=== PATIENT | male | born 1950 | race Caucasian/White ===

== ENCOUNTER 2022-04-09 11:07 | Inpatient (IN) | payer MEDICARE, OTHER ==
[~2022-04-09] VITALS: Ht 177.8 cm; Wt 66.2 kg
--- NOTE | 2022-04-09 11:27 | NUR ---
splint removed by emt as ordered
[2022-04-09] MEDS ORDERED: CEFAZOLIN 1 GM in IV D5W 50 ML IV ONE (11:30)
[2022-04-09] MEDS ORDERED: MORPHINE SULFATE INJ 2 MG/ML DISP.SYRIN IV ONE (11:30)
[2022-04-09] MEDS ORDERED: TDAP [DIPH/PERTUSSIS/TET] 0.5 ML VIAL IM ONE ×3 (11:30→12:14)
--- NOTE | 2022-04-09 11:33 | NUR ---
CALLED DR. VICTORIA LEFT VM
--- NOTE | 2022-04-09 11:43 | NUR ---
CALLED DR. JUNIOR [phone] ASKED HER TO CALL US BACK.
--- NOTE | 2022-04-09 11:45 | NUR ---
lainey paulino placed over patient.
[2022-04-09] MEDS ORDERED: MORPHINE SULFATE INJ 4 MG/ML DISP.SYRIN ONE (12:05)
[2022-04-09 12:08] LABS: BASOPHILS % (AUTO) 0.3 % (0.0-2.0); EOSINOPHILS % (AUTO) 0.1 % (0.0-6.0); HEMATOCRIT 47 % (39-51); HEMOGLOBIN 14.9 g/dL (13.5-17.5); LYMPHOCYTES % (AUTO) 9.9 % (20.0-44.0); MEAN CORPUSCULAR HGB CONC 32 g/dl (31.0-36.0); MEAN CORPUSCULAR VOLUME 111 fL (80-96); MONOCYTES # (AUTO) 1.4 K/uL (0.1-1.30); NEUTROPHILS # (AUTO) 7.3 K/uL (1.8-8.9); NEUTROPHILS % (AUTO) 75.7 % (43.0-81.0); PLATELET COUNT (AUTO) 448 K/uL (150-450); RED BLOOD CELL COUNT(AUTO) 4.21 MIL/uL (4.5-6.0); WHITE BLOOD COUNT (AUTO) 9.7 K/uL (4.3-11.0)
--- NOTE | 2022-04-09 12:11 | NUR ---
MOVE SHEET SUBMITTED.
--- NOTE | 2022-04-09 12:13 | NUR ---
CONTACTED DR. RICHTER.
[2022-04-09] MEDS ORDERED: METOPROLOL TARTRATE INJ 5 MG/5 ML AMPUL IV ONE (12:30)
[2022-04-09 13:15] LABS: CALCIUM, SERUM 9.4 mg/dL (8.5-10.1); CARBON DIOXIDE 30 mmol/L (21-32); CHLORIDE 105 mmol/L (98-107); CREATININE 1.4 mg/dL (0.6-1.3); GLUCOSE 140 mg/dL (74-106); POTASSIUM 3.3 mmol/L (3.5-5.1); SODIUM SERUM 142 mmol/L (136-145); UREA NITROGEN, BLOOD 30 mg/dL (7-18)
[2022-04-09 13:19] LABS: ALANINE AMINOTRANSFERASE 16 U/L (12-78); ALBUMIN 3.5 g/dL (3.4-5.0); ALKALINE PHOSPHATASE 77 U/L (46-116); ASPARTATE AMINOTRANSFERASE 13 U/L (15-37); BILIRUBIN,DIRECT 0.1 mg/dL (0.0-0.2); BILIRUBIN,TOTAL 0.4 mg/dL (0.2-1.0); TOTAL PROTEIN, SERUM 7.5 g/dL (6.4-8.2)
--- NOTE | 2022-04-09 13:24 | NUR ---
EPIC CALLED WILLOW MACHINE OPERATOR PAGED
[2022-04-09] MEDS ORDERED: ONDANSETRON HCL/PF 4 MG/2 ML VIAL IVP PRN (16:00)
[2022-04-09] MEDS ORDERED: HYDROCODONE/APAP 10/325MG TABLET PO PRN (16:00)
[2022-04-09] MEDS ORDERED: Z GUARD REMEDY 4 OZ OINT TP PRN (16:00)
[2022-04-09] MEDS ORDERED: CEFTRIAXONE 2 G in IV D5W 100 ML IV SCH (16:00)
--- NOTE | 2022-04-09 16:21 | NUR ---
GOT BED 113-1
--- NOTE | 2022-04-09 16:37 | NUR ---
report given to vlad GILES
[2022-04-09 16:47] LABS: C-REACTIVE PROTEIN 1.2 mg/dL (0.0-0.9)
--- NOTE | 2022-04-09 17:01 | NUR ---
moved to inpatient room safely per acls protocol
[2022-04-09 17:17] VITALS: BP 145/80
--- NOTE | 2022-04-09 17:32 | NUR ---
ICE CREAM VENDOR NOTE RECEIVED PATIENT FROM ER WITH DX HYPOTHERMIA AWAKE WITH SOME CONFUSION AND FORGETFULNESS, UNDER CARE DR LACEY GRAY, PLACED ON TELE MONITOR SR HR 87, ON RA NO SOB NOTED AT THIS TIME, SATURATION 100%, RT AC HL INTACT AND FLUSHED WELL , BED IN LOWEST AND LOCKED POSITION , VS TAKEN CALL LIGHT WITHIN REACH , ALL NEEDS ATTENDED, BODY CHECK DONE WILL CONT TO MONITOR CLOSELY SAFETY MEASURE PROVIDED
[2022-04-09] MEDS: IV 1/2NS 1000 ML 1,000 ML IV PRN (18:10)
--- NOTE | 2022-04-09 18:28 | NUR ---
GLASS LINED TANK REPAIRER NOTE IVF STARTED ORDERED
[2022-04-09] MEDS: VANCOMYCIN 1.25 GM in IV D5W 250 ML IV SCH (18:47)
--- NOTE | 2022-04-09 19:30 | NUR ---
SHERIFFS OFFICER NOTES RECEIVED PATIENT AWAKE IN BED WITH EPISODES OF CONFUSION. REORIENT THE PATIENT. ON TELE MONITOR READING SR HR 80 .ON RA TOLERATING WELL .NO SOB NOTED AT THIS TIME, SATURATION NOTED 99%. IV ACCESS NOTED RT AC G #20 INTACT AND FLUSHED WELL . TEMP NOTED 97.5. NO HYPOTHERMIA NOTED.ALL SAFETY MEASURES IN PLACE. BED IN LOWEST AND LOCKED POSITION . CALL LIGHT AND TABLE IN EASY REACH. WILL CONTINUE TO MONITOR CLOSELY.
--- NOTE | 2022-04-09 19:45 | NUR ---
RN NOTES PETRA CALLED FROM LAB REPORTED 3.9 LACTIC ACID. IT WAS LOWER THAN THE PREVIOUS WHICH WAS 4.7
[2022-04-09] MEDS: HEPARIN SODIUM, PORCINE 5000 UNITS/1 ML VIAL SQ SCH (20:41)
--- NOTE | 2022-04-10 00:31 | NUR ---
RN NOTES PATIENT'S BLOOD PRESSURE NOTED 170/90, P=84. INFORMEND TEST CASE DEVELOPER RAYMOND. NEW ORDER OF HYDRALAZINE 5MG IVP Q4 HOURS PRN GIVEN FOR HYPERTENSION. TO KEEP SBP LESS THAN 160.
--- NOTE | 2022-04-10 00:45 | NUR ---
RN NOTES BLOOD PRESSURE 171/90, P=84.PRN HYDRALAZINE IV PUSH 0.25 ML GIVEN AT 0047. BLOOD PRESSURE DROPS TO 147/74.
[2022-04-10] MEDS: hydrALAZINE HCL IV 20 MG VIAL IV PRN (00:47)
[2022-04-10 05:46] LABS: BASOPHILS % (AUTO) 0.2 % (0.0-2.0); EOSINOPHILS % (AUTO) 0.7 % (0.0-6.0); HEMATOCRIT 39 % (39-51); LYMPHOCYTES # (AUTO) 1.2 K/uL (0.8-4.8); LYMPHOCYTES % (AUTO) 18.6 % (20.0-44.0); MEAN CORPUSCULAR HGB CONC 33 g/dl (31.0-36.0); MEAN CORPUSCULAR VOLUME 108 fL (80-96); MONOCYTES % (AUTO) 16.2 % (2.0-12.0); NEUTROPHILS # (AUTO) 4.1 K/uL (1.8-8.9); NEUTROPHILS % (AUTO) 64.3 % (43.0-81.0); PLATELET COUNT (AUTO) 360 K/uL (150-450); RED BLOOD CELL COUNT(AUTO) 3.65 MIL/uL (4.5-6.0); WHITE BLOOD COUNT (AUTO) 6.4 K/uL (4.3-11.0)
[2022-04-10 06:12] LABS: CALCIUM, SERUM 8.3 mg/dL (8.5-10.1); CREATININE 0.9 mg/dL (0.6-1.3); MAGNESIUM 1.9 mg/dL (1.8-2.4); PHOSPHORUS 2.9 mg/dL (2.5-4.9); POTASSIUM 3.9 mmol/L (3.5-5.1)
--- NOTE | 2022-04-10 06:24 | NUR ---
CRIMPING PRESS OPERATOR CLOSING NOTES PATIENT AWAKE IN BED WITH EPISODES OF CONFUSION. REORIENT THE PATIENT. ON TELE MONITOR READING SR HR .ON RA TOLERATING WELL .NO SOB NOTED AT THIS TIME, SATURATION NOTED 98%. IV ACCESS NOTED RT AC G #20 INTACT AND FLUSHED WELL . TEMP NOTED 97.7 NO HYPOTHERMIA NOTED. DUE MEDS GIVEN ORDERED. ALL SAFETY MEASURES IN PLACE. BED IN LOWEST AND LOCKED POSITION . CALL LIGHT AND TABLE IN EASY REACH. WILL ENDORSE FOR VALERIA.
[2022-04-10 07:00] LABS: THYROID STIMULATING HORMONE 3.455 uIU/mL (0.358-3.74)
[2022-04-10 08:00] VITALS: BP 159/85
--- NOTE | 2022-04-10 08:01 | NUR ---
TELE OPENING RN NOTES RECEIVED PATIENT AWAKE IN BED WITH EPISODES OF CONFUSION. REORIENT THE PATIENT. ON TELE MONITOR READING SR HR 80 .ON RA TOLERATING WELL .NO SOB NOTED AT THIS TIME, TOLERATING WELL, NOT IN DISTRESS. IV ACCESS NOTED RT AC G #20 INTACT. SAFETY MEAURES IN PLACE. CALL LIGHT WITHIN REACH. PLAN OF CARE CONTINUE.
[2022-04-10] MEDS: PANTOPRAZOLE 40 MG TABLET.DR PO SCH (08:11)
[2022-04-10] MEDS: HEPARIN SODIUM, PORCINE 5000 UNITS/1 ML VIAL SQ SCH ×2 (08:15→20:51)
[2022-04-10] MEDS: IV 1/2NS 1000 ML 1,000 ML IV PRN (10:44)
[2022-04-10 12:00] VITALS: BP 142/90
[2022-04-10 16:00] VITALS: BP 123/72
[2022-04-10 16:11] LABS: LYMPHOCYTES % (MANUAL) 21 % (16-48); MONOCYTES % (MANUAL) 14 % (0-11.0); NEUTROPHILS % (MANUAL) 65 (42-76)
[2022-04-10] MEDS: VANCOMYCIN 1.25 GM in IV D5W 250 ML IV SCH (17:30)
--- NOTE | 2022-04-10 17:41 | NUR ---
URINE COLLECTED AND CALLED LAB TO PICK IT UP.
--- NOTE | 2022-04-10 18:28 | NUR ---
TELE CLOSING RN NOTES PATIENT AWAKE ALERT AND VERBALLY RESPONSIVE, WITH EPISODES OF CONFUSION. REORIENT THE PATIENT. ON TELE MONITOR READING SR HR 93. ON RA TOLERATING WELL .NO SOB NOTED AT THIS TIME, TOLERATING WELL, NOT IN DISTRESS. IV ACCESS NOTED RT AC PIV PATENT AND INTACT, WITH 1/2 NS RUNNING AT 75ML/HR AND ANTIBIOTICS. SAFETY MEAURES IN PLACE. CALL LIGHT WITHIN REACH.WILL ENDORSE TO NIGHT NURSE FOR VALERIA.
--- NOTE | 2022-04-10 19:30 | NUR ---
CUSTOMER SERVICE ASSISTANT OPENING NOTE RECEIVED PATIENT IN BED; AWAKE, ALERT AND ORIENTED X 2 WITH PERIODS OF CONFUSION. ON ROOM AIR; TOLERATING WELL. BREATHING EVEN AND NONLABORED. NOT IN ANY FORM OF RESPIRATORY DISTRESS. DENIES ANY PAIN OR DISCOMFORT AT THIS TIME. ON TELE MONITORING WITH READING OF SINUS RHYTHM HR-91 BPM. WITH IV ACCESS ON RIGHT ANTECUBITAL 20G; PATENT AND INTACT INFUSING WITH 1/2 NS 1L RUNNING @ 75 ML/HR; FLUSHES WELL. ABLE TO MAKE NEEDS KNOWN. SAFETY PRECAUTIONS IMPLEMENTED: CALL LIGHT AND TABLE WITHIN REACH, SIDE RAILS UP X 3, BED IN LOWEST LOCKED POSITION. WILL CONTINUE TO MONITOR.
[2022-04-10 19:49] LABS: BILIRUBIN,URINE NEGATIVE (NEGATIVE); COLOR,URINE YELLOW (YELLOW); LEUKOCYTE ESTERASE ,URINE NEGATIVE (NEGATIVE); NITRITE, URINE NEGATIVE (NEGATIVE); PROTEIN,URINE NEGATIVE (NEGATIVE); UGLUCOSE NEGATIVE (NEGATIVE); UROBILINOGEN,URINE 0.2 EU/dL (0.2)
[2022-04-10 20:00] VITALS: BP 141/80
[2022-04-10] MEDS: ACETAMINOPHEN 325 MG TABLET PO PRN (20:37)
--- NOTE | 2022-04-10 20:37 | NUR ---
RN NOTE PATIENT COMPLAINED OF HEADACHE. PRN TYLENOL 650 MG GIVEN PO ORDERED. PATIENT KEPT COMFORTABLE IN BED. WILL CONTINUE TO MONITOR.
[2022-04-11] VITALS: BP 122/71
[2022-04-11 04:00] VITALS: BP 122/68
[2022-04-11] MEDS: IV 1/2NS 1000 ML 1,000 ML IV PRN ×2 (04:08→21:42)
[2022-04-11] MEDS: ACETAMINOPHEN 325 MG TABLET PO PRN (04:49)
--- NOTE | 2022-04-11 04:49 | NUR ---
RN NOTE PATIENT COMPLAINED OF HEADACHE. PRN TYLENOL 650 MG GIVEN PO ORDERED. PATIENT KEPT DRY AND COMFORTABLE IN BED. WILL CONTINUE TO MONITOR.
[2022-04-11 06:01] LABS: BASOPHILS % (AUTO) 0.4 % (0.0-2.0); HEMATOCRIT 38 % (39-51); HEMOGLOBIN 12.5 g/dL (13.5-17.5); LYMPHOCYTES # (AUTO) 1.3 K/uL (0.8-4.8); LYMPHOCYTES % (AUTO) 21.8 % (20.0-44.0); MEAN CORPUSCULAR HGB CONC 33 g/dl (31.0-36.0); MEAN CORPUSCULAR VOLUME 108 fL (80-96); MONOCYTES # (AUTO) 0.8 K/uL (0.1-1.30); MONOCYTES % (AUTO) 13.8 % (2.0-12.0); NEUTROPHILS # (AUTO) 3.6 K/uL (1.8-8.9); PLATELET COUNT (AUTO) 295 K/uL (150-450); RED BLOOD CELL COUNT(AUTO) 3.51 MIL/uL (4.5-6.0); WHITE BLOOD COUNT (AUTO) 5.7 K/uL (4.3-11.0)
[2022-04-11 06:14] LABS: CALCIUM, SERUM 8.5 mg/dL (8.5-10.1); CREATININE 0.9 mg/dL (0.6-1.3); MAGNESIUM 1.9 mg/dL (1.8-2.4); PHOSPHORUS 3.2 mg/dL (2.5-4.9); POTASSIUM 3.5 mmol/L (3.5-5.1)
--- NOTE | 2022-04-11 06:45 | NUR ---
ANGLESMITH HELPER CLOSING NOTE PATIENT IN BED; AWAKE, A/O X 2 WITH PERIODS OF CONFUSION. STABLE ON ROOM AIR. BREATHING EQUAL AND UNLABORED. IN NO ACUTE DISTRESS. NO C/O ANY PAIN OR DISCOMFORT AT THIS TIME. ON TELE MONITORING WITH READING OF SINUS RHYTHM HR-73 BPM. WITH IV ACCESS ON RIGHT HAND 20G; INTACT AND PATENT INFUSING WITH 1/2 NS 1L RUNNING @ 75 ML/HR; FLUSHES WELL. WITH DRESSING ON LEFT HAND; C/D/I. SAFETY PRECAUTIONS MAINTAINED: CALL LIGHT AND TABLE WITHIN REACH, SIDE RAILS UP X 3, BED IN LOWEST LOCKED POSITION. ENDORSED TO INCOMING NURSE FOR VALERIA.
--- NOTE | 2022-04-11 07:40 | NUR ---
CADET DECK OPENING NOTE PATIENT IN BED; AWAKE, A/O X 2 WITH PERIODS OF CONFUSION. STABLE ON ROOM AIR. BREATHING EQUAL AND UNLABORED. IN NO ACUTE DISTRESS. NO C/O ANY PAIN OR DISCOMFORT AT THIS TIME. ON TELE MONITORING WITH READING OF SINUS RHYTHM HR-75 BPM. WITH IV ACCESS ON RIGHT HAND 20G; INTACT AND PATENT INFUSING WITH 1/2 NS 1L RUNNING @ 75 ML/HR; FLUSHES WELL. WITH DRESSING ON LEFT HAND; C/D/I. SAFETY PRECAUTIONS MAINTAINED: CALL LIGHT AND TABLE WITHIN REACH, SIDE RAILS UP X 3, BED IN LOWEST LOCKED POSITION. WILL CONTINUE TO MONITOR.
[2022-04-11 08:00] VITALS: BP 156/89
[2022-04-11] MEDS: PANTOPRAZOLE 40 MG TABLET.DR PO SCH (08:33)
[2022-04-11] MEDS: HEPARIN SODIUM, PORCINE 5000 UNITS/1 ML VIAL SQ SCH ×2 (08:41→21:44)
[2022-04-11 12:00] VITALS: BP 127/65
[2022-04-11 16:00] VITALS: BP 112/67
[2022-04-11] MEDS: VANCOMYCIN 1.25 GM in IV D5W 250 ML IV SCH (18:22)
--- NOTE | 2022-04-11 19:15 | NUR ---
NURSE GENERAL DUTY OPEN NOTE: ALERT AND ORIENTED TO TIME. REORIENTED TO TIME. EVEN AND UNLABORED BREATHING AT ROOM AIR. SKIN IS WARM AND DRY. SINUS RHYTHM 72 WITH ELEVATED T WAVE TELE MONITOR. IV ABX AND IVF OF 1/2 NS 75 ML/HR. IV SITE WITH NO S/S OF COMPLICATIONS. HOB ELEVATED AT SEMI-FOWLERS POSITION. BILATERAL HALF SIDE RAILS UP X2. BED IN LOW POSITION, LOCKED, EXIT ALARM ON. CALL LIGHT IN REACH. DENIES PAIN OR DISCOMFORT. VOIDED IN URINAL YELLOW URINE.
--- NOTE | 2022-04-11 19:41 | NUR ---
MARKET NEWS REPORTER CLOSING NOTE PATIENT IN BED; AWAKE, A/O X 2 WITH PERIODS OF CONFUSION. STABLE ON ROOM AIR. BREATHING EQUAL AND UNLABORED. IN NO ACUTE DISTRESS. NO C/O ANY PAIN OR DISCOMFORT AT THIS TIME. ON TELE MONITORING WITH READING OF SINUS RHYTHM HR-72 BPM. WITH IV ACCESS ON RIGHT HAND 20G; INTACT AND PATENT INFUSING WITH 1/2 NS 1L RUNNING @ 75 ML/HR; FLUSHES WELL. WITH DRESSING ON LEFT HAND; C/D/I. ALL DUE MEDS GIVEN. KEPT COMFORTABLE. SAFETY PRECAUTIONS MAINTAINED: CALL LIGHT AND TABLE WITHIN REACH, SIDE RAILS UP X 3, BED IN LOWEST LOCKED POSITION. ENDORSED TO INCOMING NURSE FOR VALERIA.
[2022-04-11 20:00] VITALS: BP 137/79
[2022-04-12] VITALS: BP 151/89
[2022-04-12] MEDS: ACETAMINOPHEN 325 MG TABLET PO PRN ×2 (00:38→18:11)
[2022-04-12 04:00] VITALS: BP 135/88
--- NOTE | 2022-04-12 06:30 | NUR ---
SUPERVISOR CELL EFFICIENCY CLOSING NOTE: ALERT AND ORIENTED TO TIME. REORIENTED TO TIME. EVEN AND UNLABORED BREATHING AT ROOM AIR. SKIN IS WARM AND DRY. SINUS RHYTHM 72 WITH ELEVATED T WAVE TELE MONITOR. IV ABX AND IVF OF 1/2 NS 75 ML/HR. IV SITE WITH NO S/S OF COMPLICATIONS. HOB ELEVATED AT SEMI-FOWLERS POSITION. USES URINAN WITH YELLOW URINE. ABLE TO SLEEP WELL. BILATERAL HALF SIDE RAILS UP X2. BED IN LOW POSITION, LOCKED, EXIT ALARM ON. CALL LIGHT IN REACH. DENIES PAIN OR DISCOMFORT. VOIDED IN URINAL YELLOW URINE.
--- NOTE | 2022-04-12 07:10 | NUR ---
AM MED SURG OPENING NOTES: RECEIVED PATIENT IN BED, AWAKE, ALERT, ORIENTED X 2. NO SOB NOTED AT THIS TIME, BREATHING EVEN AND UNLABORED.ROOM AIR 95-97% O2 SAT. PATIENT HAS IV RT HAND 24G.PATIENT DENIES ANY PAIN. BED LOCKED AND IN LOWEST POSITION WITH BED ALARM ON. ALL SAFETY MEASURES IN PLACE. CALL LIGHT WITHIN REACH. WILL CONTINUE TO MONITOR PATIENT THROUGHOUT SHIFT.
[2022-04-12 07:28] LABS: BASOPHILS % (AUTO) 0.6 % (0.0-2.0); HEMATOCRIT 38 % (39-51); HEMOGLOBIN 12.4 g/dL (13.5-17.5); LYMPHOCYTES # (AUTO) 1.1 K/uL (0.8-4.8); LYMPHOCYTES % (AUTO) 17.9 % (20.0-44.0); MEAN CORPUSCULAR HGB CONC 33 g/dl (31.0-36.0); MEAN CORPUSCULAR VOLUME 109 fL (80-96); MONOCYTES # (AUTO) 0.6 K/uL (0.1-1.30); MONOCYTES % (AUTO) 10.8 % (2.0-12.0); NEUTROPHILS # (AUTO) 4.1 K/uL (1.8-8.9); NEUTROPHILS % (AUTO) 68.7 % (43.0-81.0); PLATELET COUNT (AUTO) 285 K/uL (150-450); RED BLOOD CELL COUNT(AUTO) 3.47 MIL/uL (4.5-6.0)
[2022-04-12 08:00] VITALS: BP 149/86
[2022-04-12] MEDS: PANTOPRAZOLE 40 MG TABLET.DR PO SCH (08:04)
[2022-04-12 08:07] LABS: CALCIUM, SERUM 8.4 mg/dL (8.5-10.1); CARBON DIOXIDE 24 mmol/L (21-32); CHLORIDE 105 mmol/L (98-107); CREATININE 0.8 mg/dL (0.6-1.3); GLUCOSE 95 mg/dL (74-106); MAGNESIUM 1.9 mg/dL (1.8-2.4); PHOSPHORUS 3.5 mg/dL (2.5-4.9); POTASSIUM 3.3 mmol/L (3.5-5.1); SODIUM SERUM 138 mmol/L (136-145); UREA NITROGEN, BLOOD 7 mg/dL (7-18)
[2022-04-12] MEDS: HEPARIN SODIUM, PORCINE 5000 UNITS/1 ML VIAL SQ SCH ×2 (08:09→22:26)
[2022-04-12] MEDS: hydrALAZINE HCL IV 20 MG VIAL IV PRN (08:09)
[2022-04-12] MEDS ORDERED: POTASSIUM CHLORIDE 20 MEQ TAB.PRT.SR PO ONE (11:00)
[2022-04-12 12:00] VITALS: BP 161/91
[2022-04-12] MEDS: IV 1/2NS 1000 ML 1,000 ML IV PRN (13:51)
[2022-04-12 16:00] VITALS: BP 128/73
[2022-04-12] MEDS: LISINOPRIL (5MG) 5 MG TABLET PO SCH (16:22)
--- NOTE | 2022-04-12 18:15 | NUR ---
STEEL ERECTOR APPRENTICE NOTE PT COMPLAINED OF HEADACHE TYLENOL ADMINISTERE PRN
[2022-04-12] MEDS: VANCOMYCIN 1.25 GM in IV D5W 250 ML IV SCH (18:26)
--- NOTE | 2022-04-12 18:36 | NUR ---
CONTROL CLERK SUBASSEMBLY CLOSING NOTE PATIENT IN BED; AWAKE, A/O X 4 STABLE ON ROOM AIR. BREATHING EQUAL AND UNLABORED. IN NO ACUTE DISTRESS. NO C/O ANY PAIN OR DISCOMFORT AT THIS TIME. WITH IV ACCESS ON RIGHT HAND 20G; INTACT AND PATENT INFUSING WITH 1/2 NS 1000L RUNNING @ 75 ML/HR; FLUSHES WELL. WITH DRESSING ON LEFT HAND; SAFETY PRECAUTIONS MAINTAINED: CALL LIGHT AND TABLE WITHIN REACH, SIDE RAILS UP X 2, BED IN LOWEST LOCKED POSITION. WILL ENDORSE TO GUN STOCKER NURSE
[2022-04-12 20:00] VITALS: BP 148/80
--- NOTE | 2022-04-12 20:00 | NUR ---
MS RN OPENING NOTES: RECEIVED PATIENT AWAKE IN BED, BED IN LOW POSITION CALL LIGHTS WITHIN REACH, NO COMPLAIN OF PAIN AND DISCOMFORT AT THIS TIME, ON ROOM AIR SATURATING WELL, PATIENT IS A/OX3 ABLE TO MAKE NEEDS KNWON, ON BED REST REMIND TO USE CALL LIGHTS WHEN NEEDED ASSISTANCE, IV LINE AT RIGHT HAND #24 WITH ONGOING 1/2 NSS@75ML/HR INFUSING WELL, PATIENT KEPT CLEAN AND DRY ALL NEEDS MET WILL CONTINUE TO MONITOR;
[2022-04-13] VITALS: BP 153/82
[2022-04-13 04:00] VITALS: BP 169/92
[2022-04-13] MEDS: hydrALAZINE HCL IV 20 MG VIAL IV PRN (05:18)
[2022-04-13] MEDS: ACETAMINOPHEN 325 MG TABLET PO PRN (05:18)
[2022-04-13] MEDS ORDERED: VANCOMYCIN 1.25 GM in IV D5W 250 ML IV SCH (06:00)
--- NOTE | 2022-04-13 06:10 | NUR ---
RN NOTES: PATIENT REFUSED TO BE CLEAN PER INSURANCE JOB TITLES WENT THERE TRY TO CONVINCED PATIENT TO HAVE [employer] CLEAN, EXPLAIN BENEFITS BUT PATIENT KEPT ON REFUSING, WILL CONTINUE TO MONITOR
--- NOTE | 2022-04-13 06:19 | NUR ---
FIELD SERVICER CLOSING NOTES: PATIENT AWAKE IN BED, CASSANDRA IN LOW POSITION, CALL LIGHTS WITHIN REACH, NO COMPLAIN OF PAIN AND DISCOMFORT AT THIS TIME, ON ROOM AIR SATURATING WELL, PATIENT IS A/O X4 ABLE TO MAKE NEEDS KNOWN, PATIENT KEPT CLEAN AND DRY ALL NEEDS MET ENDORSE TO INCOMING SHIFT.
[2022-04-13 07:26] LABS: BASOPHILS % (AUTO) 0.2 % (0.0-2.0); EOSINOPHILS % (AUTO) 2.5 % (0.0-6.0); HEMATOCRIT 40 % (39-51); HEMOGLOBIN 13.1 g/dL (13.5-17.5); LYMPHOCYTES # (AUTO) 1.6 K/uL (0.8-4.8); LYMPHOCYTES % (AUTO) 17.4 % (20.0-44.0); MEAN CORPUSCULAR HGB CONC 33 g/dl (31.0-36.0); MEAN CORPUSCULAR VOLUME 109 fL (80-96); MONOCYTES # (AUTO) 1.1 K/uL (0.1-1.30); MONOCYTES % (AUTO) 11.9 % (2.0-12.0); NEUTROPHILS # (AUTO) 6.4 K/uL (1.8-8.9); PLATELET COUNT (AUTO) 314 K/uL (150-450); RED BLOOD CELL COUNT(AUTO) 3.65 MIL/uL (4.5-6.0); WHITE BLOOD COUNT (AUTO) 9.3 K/uL (4.3-11.0)
--- NOTE | 2022-04-13 07:32 | NUR ---
PATIENT AWAKE IN BED, CASSANDRA IN LOW POSITION, CALL LIGHTS WITHIN REACH, NO COMPLAIN OF PAIN AND DISCOMFORT AT THIS TIME, ON ROOM AIR SATURATING WELL, PATIENT IS A/O X4 ABLE TO MAKE NEEDS KNOWN, PATIENT KEPT CLEAN AND DRY ALL NEEDS MET ENDORSE TO INCOMING SHIFT. CALL LIGHT WITHIN REACH.
[2022-04-13 07:42] LABS: CALCIUM, SERUM 8.4 mg/dL (8.5-10.1); CARBON DIOXIDE 26 mmol/L (21-32); CHLORIDE 103 mmol/L (98-107); CREATININE 0.8 mg/dL (0.6-1.3); GLUCOSE 109 mg/dL (74-106); PHOSPHORUS 3.3 mg/dL (2.5-4.9); POTASSIUM 3.4 mmol/L (3.5-5.1); SODIUM SERUM 137 mmol/L (136-145); UREA NITROGEN, BLOOD 8 mg/dL (7-18)
[2022-04-13 08:00] VITALS: BP 165/89
[2022-04-13] MEDS: PANTOPRAZOLE 40 MG TABLET.DR PO SCH (08:01)
[2022-04-13] MEDS: LISINOPRIL (5MG) 5 MG TABLET PO SCH (08:02)
[2022-04-13] MEDS: HEPARIN SODIUM, PORCINE 5000 UNITS/1 ML VIAL SQ SCH (08:03)
[2022-04-13] MEDS ORDERED: POTASSIUM CHLORIDE 20 MEQ TAB.PRT.SR PO SCH (09:00)
[2022-04-13 12:00] VITALS: BP 165/89
--- NOTE | 2022-04-13 14:16 | NUR ---
COVID TEST DONE
--- NOTE | 2022-04-13 14:52 | NUR ---
REPORT GIVEN TO OJ GILES FOREST AIDE AT [facility].
--- NOTE | 2022-04-13 16:10 | NUR ---
PATIENT IS LEAVING BY [facility] AND BEING DISCHARGED TO [facility]. PATIENT IS IN STABLE CONDITION.
[2022-04-13] MEDS ORDERED: VANCOMYCIN 1.25 GM in IV NS 0.9% 250 ML IV SCH (18:00)
== END 2022-04-13 16:20 | DRG 871 ==
LOC: ER 11:09 → TELE1 16:45 → TELE-TD 04-11 20:37 → MEDSG1 04-12 15:50
PROVIDERS: ADMIT Nurse Practitioner Family
DX: A41.9 Sepsis, unspecified organism (principal); N17.0 Acute kidney failure with tubular necrosis; S52.615A Nondisplaced fracture of left ulna styloid process, initial encounter for closed fracture; S52.515A Nondisplaced fracture of left radial styloid process, initial encounter for closed fracture; L03.114 Cellulitis of left upper limb; T68.XXXA Hypothermia, initial encounter; R65.20 Severe sepsis without septic shock; E87.6 Hypokalemia; F15.10 Other stimulant abuse, uncomplicated; I10 Essential (primary) hypertension; R73.9 Hyperglycemia, unspecified; W19.XXXA Unspecified fall, initial encounter; Y93.9 Activity, unspecified; S60.522A Blister (nonthermal) of left hand, initial encounter; Y92.89 Other specified places as the place of occurrence of the external cause
CPT/HCPCS: 36415; 71045-TC; 73110; 73130-TC; 80048-TC; 80061-TC; 80076-TC; 80202-TC; 82550-TC; 83605-TC; 83735-TC; 84100-TC; 84443-TC; 84484-TC; 85025-TC; 85652-TC; 85730-TC; 86140-TC; 86803; 87040-TC; 87081-TC; 87806; 90715; C9803; G0378; J0360; J0690; J0696; J1644; J2270; J3370; J3490; J7030; J7050; J7060

== ENCOUNTER 2024-01-31 12:38 | Inpatient (IN) | payer MEDICARE, OTHER ==
[~2024-01-31] VITALS: Ht 170.2 cm; Wt 74.8 kg
[2024-01-31 13:33] LABS: BASOPHILS % (AUTO) 0.3 % (0.0-2.0); EOSINOPHILS # (AUTO) 0.3 K/uL (0.0-0.7); EOSINOPHILS % (AUTO) 3.5 % (0.0-6.0); HEMATOCRIT 37 % (39-51); HEMOGLOBIN 12.4 g/dL (13.5-17.5); LYMPHOCYTES # (AUTO) 0.9 K/uL (0.8-4.8); LYMPHOCYTES % (AUTO) 10.2 % (20.0-44.0); MEAN CORPUSCULAR HEMOGLOBIN 33 PG (26.0-33.0); MEAN CORPUSCULAR HGB CONC 34 g/dl (31.0-36.0); MEAN CORPUSCULAR VOLUME 99 fL (80-96); MONOCYTES # (AUTO) 0.9 K/uL (0.1-1.30); MONOCYTES % (AUTO) 10.2 % (2.0-12.0); NEUTROPHILS # (AUTO) 6.8 K/uL (1.8-8.9); NEUTROPHILS % (AUTO) 75.8 % (43.0-81.0); PLATELET COUNT (AUTO) 236 K/uL (150-450); RED BLOOD CELL COUNT(AUTO) 3.71 MIL/uL (4.5-6.0); RED CELL DISTRIBUTION WIDTH 13.6 % (11.5-15.0); WHITE BLOOD COUNT (AUTO) 8.9 K/uL (4.3-11.0)
[2024-01-31 13:46] LABS: ALANINE AMINOTRANSFERASE 16 U/L (12-78); ALBUMIN 3.1 g/dL (3.4-5.0); ALKALINE PHOSPHATASE 122 U/L (46-116); ASPARTATE AMINOTRANSFERASE 11 U/L (15-37); BILIRUBIN,DIRECT 0.1 mg/dL (0.0-0.2); BILIRUBIN,TOTAL 0.5 mg/dL (0.2-1.0); CALCIUM, SERUM 8.6 mg/dL (8.5-10.1); CARBON DIOXIDE 26 mmol/L (21-32); CHLORIDE 107 mmol/L (98-107); CREATININE 1.2 mg/dL (0.6-1.3); GLUCOSE 96 mg/dL (74-106); POTASSIUM 4.3 mmol/L (3.5-5.1); SODIUM SERUM 143 mmol/L (136-145); TOTAL PROTEIN, SERUM 7.1 g/dL (6.4-8.2); UREA NITROGEN, BLOOD 25 mg/dL (7-18)
[2024-01-31 14:54] LABS: NT-PRO BNP 131 pg/mL (0-125)
[2024-01-31] MEDS: CEFEPIME 1 GM in IV D5W 50 ML IV ONE (14:55)
[2024-01-31] MEDS: VANCOMYCIN 1 GM in IV D5W 250 ML IV ONE (15:07)
[2024-01-31 15:20] LABS: INR 1.01 (0.91-1.10); PARTIAL THROMBOPLASTIN TIME 28.7 SEC (24.3-34.3); PROTHROMBIN TIME 10.7 SECS (9.2-11.1)
[2024-01-31] MEDS ORDERED: ARIP5TAB10 PO (15:31)
[2024-01-31] MEDS ORDERED: ACET325T53 PO (15:31)
[2024-01-31] MEDS ORDERED: POLY17PO4 PO (15:31)
[2024-01-31] MEDS ORDERED: FURO20TA4 PO (15:31)
[2024-01-31] MEDS ORDERED: DICL75TA5 PO (15:31)
[2024-01-31] MEDS ORDERED: ASCO100058 PO (15:31)
[2024-01-31] MEDS ORDERED: CHOL500062 PO (15:31)
[2024-01-31] MEDS ORDERED: GABA300C PO (15:31)
[2024-01-31] MEDS ORDERED: SERT50TA PO (15:31)
[2024-01-31] MEDS ORDERED: MULT-16 PO (15:31)
[2024-01-31] MEDS ORDERED: MAGN400T52 PO (15:31)
[2024-01-31] MEDS ORDERED: HYDR-4076 PO (15:31)
[2024-01-31 15:44] LABS: BILIRUBIN,DIRECT 0.1 mg/dL (0.0-0.2); BILIRUBIN,TOTAL 0.4 mg/dL (0.2-1.0)
[2024-01-31] MEDS ORDERED: ONDANSETRON HCL/PF 4 MG/2 ML VIAL IVP PRN (16:00)
[2024-01-31] MEDS ORDERED: MAGNESIUM HYDROXIDE 30 ML UDC PO PRN (16:00)
[2024-01-31] MEDS ORDERED: ACETAMINOPHEN 325 MG TABLET PO PRN (16:00)
[2024-01-31] MEDS ORDERED: HYDROCODONE/APAP 10/325MG TABLET PO PRN (16:00)
[2024-01-31] MEDS ORDERED: MAG HYDROX/AL HYDROX/SIMETH 30 ML UDC PO PRN (16:00)
[2024-01-31] MEDS ORDERED: Z GUARD REMEDY 4 OZ OINT TP PRN (16:00)
[2024-01-31 16:40] VITALS: BP 153/90; TEMP 97.3; O2SAT 98
[2024-01-31] MEDS: IV NS 0.9% 250 ML IV PRN (16:56)
[2024-01-31] MEDS: ENOXAPARIN SODIUM 40 MG/0.4 ML DISP.SYRIN SQ SCH (17:00)
[2024-01-31] MEDS ORDERED: MAGNESIUM OXIDE 400 MG TABLET PO SCH (17:00)
[2024-01-31] MEDS: FUROSEMIDE 40 MG/4 ML VIAL IV SCH (17:07)
[2024-01-31] MEDS: GABAPENTIN 300 MG CAPSULE PO SCH (17:07)
[2024-01-31] MEDS: hydrALAZINE HCL 25 MG TABLET PO SCH (17:09)
[2024-01-31] MEDS: VANCOMYCIN 750 MG in IV D5W 250 ML IV ONE (18:02)
[2024-01-31] MEDS: DICLOFENAC SODIUM 25 MG TABLET.DR PO SCH (19:25)
[2024-02-01] MEDS: VANCOMYCIN 750 MG in IV D5W 250 ML IV SCH (05:09)
[2024-02-01 06:27] LABS: BASOPHILS % (AUTO) 0.3 % (0.0-2.0); EOSINOPHILS # (AUTO) 0.3 K/uL (0.0-0.7); EOSINOPHILS % (AUTO) 5.4 % (0.0-6.0); HEMATOCRIT 41 % (39-51); HEMOGLOBIN 13.1 g/dL (13.5-17.5); LYMPHOCYTES % (AUTO) 15.6 % (20.0-44.0); MEAN CORPUSCULAR HEMOGLOBIN 32 PG (26.0-33.0); MEAN CORPUSCULAR HGB CONC 32 g/dl (31.0-36.0); MEAN CORPUSCULAR VOLUME 100 fL (80-96); MONOCYTES # (AUTO) 0.8 K/uL (0.1-1.30); MONOCYTES % (AUTO) 13.4 % (2.0-12.0); NEUTROPHILS # (AUTO) 4.1 K/uL (1.8-8.9); NEUTROPHILS % (AUTO) 65.3 % (43.0-81.0); PLATELET COUNT (AUTO) 210 K/uL (150-450); RED BLOOD CELL COUNT(AUTO) 4.05 MIL/uL (4.5-6.0); RED CELL DISTRIBUTION WIDTH 13.4 % (11.5-15.0); WHITE BLOOD COUNT (AUTO) 6.2 K/uL (4.3-11.0)
[2024-02-01 06:41] LABS: CALCIUM, SERUM 8.8 mg/dL (8.5-10.1); CARBON DIOXIDE 24 mmol/L (21-32); CHLORIDE 104 mmol/L (98-107); CREATININE 1.1 mg/dL (0.6-1.3); GLUCOSE 87 mg/dL (74-106); MAGNESIUM 2.4 mg/dL (1.8-2.4); PHOSPHORUS 4.4 mg/dL (2.5-4.9); POTASSIUM 4.3 mmol/L (3.5-5.1); SODIUM SERUM 139 mmol/L (136-145); UREA NITROGEN, BLOOD 26 mg/dL (7-18)
[2024-02-01] MEDS: ARIPIPRAZOLE 5 MG TABLET PO SCH (08:11)
[2024-02-01] MEDS: SERTRALINE HCL 50 MG TABLET PO SCH (08:12)
[2024-02-01] MEDS: POLYETHYLENE GLYCOL 3350 17 GM POWD.PACK PO SCH (08:12)
[2024-02-01 08:15] VITALS: BP 155/73; TEMP 97.7; O2SAT 96
[2024-02-01 09:45] VITALS: BP 138/71
[2024-02-01 11:54] VITALS: BP_SYST 133; BP_SYST 138; BP_DIAS 71; BP_DIAS 84
[2024-02-01 16:00] VITALS: BP 135/69; TEMP 97.8; O2SAT 95
[2024-02-01 17:54] VITALS: BP 122/76
[2024-02-01 20:00] VITALS: BP 133/67; TEMP 97.5; O2SAT 95
[2024-02-02] MEDS: ACETAMINOPHEN 325 MG TABLET PO PRN (01:27)
[2024-02-02 04:00] VITALS: BP 149/81; TEMP 97.5; O2SAT 96
[2024-02-02] MEDS: VANCOMYCIN HCL 1.25 GM in IV D5W 250 ML IV SCH (04:36)
[2024-02-02 06:31] LABS: BASOPHILS % (AUTO) 0.4 % (0.0-2.0); EOSINOPHILS # (AUTO) 0.3 K/uL (0.0-0.7); EOSINOPHILS % (AUTO) 5.3 % (0.0-6.0); HEMATOCRIT 41 % (39-51); HEMOGLOBIN 13.3 g/dL (13.5-17.5); LYMPHOCYTES # (AUTO) 1.3 K/uL (0.8-4.8); LYMPHOCYTES % (AUTO) 20.7 % (20.0-44.0); MEAN CORPUSCULAR HEMOGLOBIN 32 PG (26.0-33.0); MEAN CORPUSCULAR HGB CONC 32 g/dl (31.0-36.0); MEAN CORPUSCULAR VOLUME 100 fL (80-96); MONOCYTES # (AUTO) 0.9 K/uL (0.1-1.30); MONOCYTES % (AUTO) 15.2 % (2.0-12.0); NEUTROPHILS # (AUTO) 3.6 K/uL (1.8-8.9); NEUTROPHILS % (AUTO) 58.4 % (43.0-81.0); PLATELET COUNT (AUTO) 230 K/uL (150-450); RED BLOOD CELL COUNT(AUTO) 4.11 MIL/uL (4.5-6.0); RED CELL DISTRIBUTION WIDTH 13.5 % (11.5-15.0); WHITE BLOOD COUNT (AUTO) 6.1 K/uL (4.3-11.0)
[2024-02-02 06:51] LABS: CALCIUM, SERUM 8.6 mg/dL (8.5-10.1); CARBON DIOXIDE 23 mmol/L (21-32); CHLORIDE 106 mmol/L (98-107); CREATININE 1.1 mg/dL (0.6-1.3); GLUCOSE 92 mg/dL (74-106); POTASSIUM 4.7 mmol/L (3.5-5.1); SODIUM SERUM 139 mmol/L (136-145); UREA NITROGEN, BLOOD 24 mg/dL (7-18)
[2024-02-02 08:00] VITALS: BP 169/66; TEMP 98.2; O2SAT 96
[2024-02-02] MEDS ORDERED: SULF1TAB48 PO (08:55)
[2024-02-02] MEDS ORDERED: FURO-144 PO (08:55)
[2024-02-02 13:34] VITALS: BP 169/66
== END 2024-02-02 16:05 | DRG 602 ==
LOC: ER 12:40 → TELE1 16:17 → MEDSG1 16:43
PROVIDERS: ADMIT Internal Medicine; ATTEND Internal Medicine
DX: L03.115 Cellulitis of right lower limb (principal); E43 Unspecified severe protein-calorie malnutrition; N17.0 Acute kidney failure with tubular necrosis; L03.116 Cellulitis of left lower limb; I12.9 Hypertensive chronic kidney disease with stage 1 through stage 4 chronic kidney disease, or unspecified chronic kidney disease; N18.9 Chronic kidney disease, unspecified; E88.09 Other disorders of plasma-protein metabolism, not elsewhere classified; F32.9 Major depressive disorder, single episode, unspecified; G62.9 Polyneuropathy, unspecified; I87.393 Chronic venous hypertension (idiopathic) with other complications of bilateral lower extremity; I87.2 Venous insufficiency (chronic) (peripheral); Z68.25 Body mass index [BMI] 25.0-25.9, adult
CPT/HCPCS: 36415; 71045-TC; 80048-TC; 80076-TC; 80202-TC; 83605-TC; 83735-TC; 83880; 84100-TC; 84484-TC; 85025-TC; 85730-TC; 87040-TC; 87081-TC; 93970-TC; 97110-TC; 97116-TC; 97530-TC; A4223; G0378; J0692; J1650; J1940; J3370; J3371; J7050; J7060